=== PATIENT | female | born 1940 | race Caucasian/White ===

== ENCOUNTER 2023-08-14 13:33 | Outpatient (RCR) | payer MEDICARE, SELFPAY ==
[2023-08-14 14:18] LABS: % Basophils 0.6 % (0-2); % Eosinophils 1.3 % (0-6); % Immature Granulocytes 0.4 % (0-0.5); % Lymphocytes 14.2 % (20.5-51.1); % Monocytes 2.8 % (1.7-9.3); % Neutrophils 80.7 % (42.2-75.2); Absolute Basophils 0.1 10^3/uL (0-0.2); Absolute Eosinophils 0.1 10^3/uL (0-0.7); Absolute Lymphocytes 1.1 10^3/uL (1.2-3.4); Absolute Monocytes 0.2 10^3/uL (0.1-0.6); Absolute Neutrophils 6.4 10^3/uL (1.4-6.5); Hematocrit 47.4 % (37.0-47.0); Hemoglobin 13.7 g/dL (12.0-16.0); Mean Corp Hgb Conc. 28.9 g/dL (33.0-37.0); Mean Corpuscular Hgb 19.6 pg (27.0-31.0); Mean Corpuscular Volume 67.7 fL (81.0-99.0); Mean Platelet Volume 9.2 fL (7.4-10.4); Platelet Count 278 10^3/uL (130-400); Red Cell Dist. Width 19.7 % (11.5-14.5)
[2023-08-14 14:27] VITALS: BP 105/87
[2023-08-14 15:17] VITALS: BP 118/77
[2023-08-14 15:25] VITALS: BP 105/76
== END 2023-09-03 23:59 | disposition home or self-care (01) ==
LOC: OID 13:33
PROVIDERS: ATTENDING PHYSICIAN Internal Medicine Hematology & Oncology; PRIMARYCARE PHYSICIAN Internal Medicine
DX: D45 Polycythemia vera (principal)
CPT/HCPCS: 36415; 85025; 99195

== ENCOUNTER 2023-10-08 10:42 | Outpatient (RCR) | payer MEDICARE, SELFPAY ==
[2023-10-08 11:15] LABS: % Basophils 0.5 % (0-2); % Eosinophils 1.1 % (0-6); % Immature Granulocytes 0.2 % (0-0.5); % Lymphocytes 9.5 % (20.5-51.1); % Monocytes 2.3 % (1.7-9.3); % Neutrophils 86.4 % (42.2-75.2); Absolute Eosinophils 0.1 10^3/uL (0-0.7); Absolute Lymphocytes 0.8 10^3/uL (1.2-3.4); Absolute Monocytes 0.2 10^3/uL (0.1-0.6); Absolute Neutrophils 7.3 10^3/uL (1.4-6.5); Hematocrit 44.3 % (37.0-47.0); Hemoglobin 12.8 g/dL (12.0-16.0); Mean Corp Hgb Conc. 28.9 g/dL (33.0-37.0); Mean Corpuscular Hgb 19.8 pg (27.0-31.0); Mean Corpuscular Volume 68.4 fL (81.0-99.0); Mean Platelet Volume 9.4 fL (7.4-10.4); Platelet Count 271 10^3/uL (130-400); Red Blood Cell Count 6.48 10^6/uL (4.20-5.40); Red Cell Dist. Width 18.8 % (11.5-14.5); White Blood Cell Count 8.4 10^3/uL (4.8-10.8)
== END 2023-10-08 15:47 | disposition home or self-care (01) ==
LOC: OID 10:42
PROVIDERS: ATTENDING PHYSICIAN Internal Medicine Hematology & Oncology; PRIMARYCARE PHYSICIAN Internal Medicine
DX: D45 Polycythemia vera (principal)
CPT/HCPCS: 36415; 85025

== ENCOUNTER 2023-11-13 12:52 | Outpatient (RCR) | payer MEDICARE, SELFPAY ==
[2023-11-13 13:00] VITALS: BP 127/76
[2023-11-13 13:27] LABS: % Basophils 0.5 % (0-2); % Immature Granulocytes 0.2 % (0-0.5); % Lymphocytes 8.9 % (20.5-51.1); % Monocytes 2.2 % (1.7-9.3); % Neutrophils 87.2 % (42.2-75.2); Absolute Basophils 0.1 10^3/uL (0-0.2); Absolute Eosinophils 0.1 10^3/uL (0-0.7); Absolute Lymphocytes 0.9 10^3/uL (1.2-3.4); Absolute Monocytes 0.2 10^3/uL (0.1-0.6); Absolute Neutrophils 8.4 10^3/uL (1.4-6.5); Hematocrit 48.4 % (37.0-47.0); Mean Corp Hgb Conc. 28.9 g/dL (33.0-37.0); Mean Corpuscular Hgb 19.7 pg (27.0-31.0); Mean Corpuscular Volume 68.1 fL (81.0-99.0); Mean Platelet Volume 9.7 fL (7.4-10.4); Platelet Count 309 10^3/uL (130-400); Red Blood Cell Count 7.11 10^6/uL (4.20-5.40); Red Cell Dist. Width 18.8 % (11.5-14.5); White Blood Cell Count 9.7 10^3/uL (4.8-10.8)
[2023-11-13 14:30] VITALS: BP 121/74
[2023-11-13 14:33] VITALS: BP 98/73
== END 2023-12-02 23:59 | disposition home or self-care (01) ==
LOC: OID 12:52
PROVIDERS: ATTENDING PHYSICIAN Internal Medicine Hematology & Oncology; PRIMARYCARE PHYSICIAN Internal Medicine
DX: D45 Polycythemia vera (principal)
CPT/HCPCS: 85025; 99195

== ENCOUNTER 2023-12-25 12:54 | Outpatient (RCR) | payer MEDICARE, SELFPAY ==
[2023-12-25 13:16] LABS: % Basophils 0.5 % (0-2); % Eosinophils 0.8 % (0-6); % Immature Granulocytes 0.2 % (0-0.5); % Lymphocytes 9.8 % (20.5-51.1); % Monocytes 2.1 % (1.7-9.3); % Neutrophils 86.6 % (42.2-75.2); Absolute Basophils 0.1 10^3/uL (0-0.2); Absolute Eosinophils 0.1 10^3/uL (0-0.7); Absolute Monocytes 0.2 10^3/uL (0.1-0.6); Absolute Neutrophils 8.6 10^3/uL (1.4-6.5); Hematocrit 45.7 % (37.0-47.0); Hemoglobin 13.1 g/dL (12.0-16.0); Mean Corp Hgb Conc. 28.7 g/dL (33.0-37.0); Mean Corpuscular Hgb 19.3 pg (27.0-31.0); Mean Corpuscular Volume 67.4 fL (81.0-99.0); Mean Platelet Volume 9.3 fL (7.4-10.4); Platelet Count 313 10^3/uL (130-400); Red Blood Cell Count 6.78 10^6/uL (4.20-5.40); Red Cell Dist. Width 19.1 % (11.5-14.5)
[2023-12-25 13:18] VITALS: BP 149/73
[2023-12-25 14:07] VITALS: BP 122/75
== END 2023-12-26 08:53 | disposition home or self-care (01) ==
LOC: OID 12:54
PROVIDERS: ATTENDING PHYSICIAN Internal Medicine Hematology & Oncology; PRIMARYCARE PHYSICIAN Internal Medicine
DX: D45 Polycythemia vera (principal)
CPT/HCPCS: 85025; 99195

== ENCOUNTER 2023-12-28 09:10 | Inpatient (IN) | payer MEDICARE, SELFPAY ==
[2023-12-28 04:28] VITALS: BP 158/90
--- NOTE | 2023-12-28 05:04 | ED.GENMED ---
History of Present Illness
General
Chief Complaint: Abdominal Pain
Source: patient and spouse
Exam Limitations: none
Time Seen by Provider: 12/28/23 04:53
Nursing documentation reviewed up to this point in time: agreed with
Travel History
Have you had any contact with someone who has COVID-19?: No
Do you have any symptoms of coronavirus? Fever > 100 degrees, chills, cough, shortness of breath, sore throat, loss of taste or smell, muscle aches, or headache?: No
History of Present Illness
History of Present Illness:
This is an 83-year-old woman who resides at home with her . She has history of polycythemia vera follows with hematology and is maintained on intermittent phlebotomy generally every 6 weeks. Last phlebotomy procedure December 24. She complains
of generalized lower abdominal pain that began around 2:00 this morning, mild to moderate in nature accompanied with nausea, 1 episode of vomiting. She did pass a small soft stool with perhaps mild improvement in pain but then returned and seemed
to wrap around to her right low back. She states at 1 point right low back pain was worse with attempting to lift her right leg but she denies radiation of the pain down her leg, denies weakness nor numbness.
She denies dysuria nor urgency and or hematuria, denies fever nor chills. No history of similar episodes of abdominal pain.
No prior abdominal surgeries.
She has not taken anything for discomfort and now notes relief of lower abdominal pain but continues with mild ache right low back which has improved but has not resolved.
She denies recent injury nor fall.
Past History
Past History
ED Past Medical History: HTN and Other (Polycythemia vera)
ED Past Surgical History: Gynecological (Tubal ligation, D&C) and Tonsilectomy
Social History
Tobacco: Non-smoker
Alcohol: None
Personal:
Living: with family
Family History
Family History: Cancer
Phy Exam
Physical Exam
Physical Exam:
GENERAL: 83-year-old woman appears her stated age, awake and alert, pleasant, appears in no acute distress. Accompanied by her .
EYE: anicteric
NECK: Supple, nontender, no meningismus, no significant adenopathy.
ENT: poral mucosa is moist. No rhinorrhea.
CARDIAC: Regular rate and rhythm. no murmur.
LUNGS: Clear breath sounds bilaterally, no acute respiratory distress, no wheezes/rales/rhonchi
ABDOMEN: Soft, nondistended, without focal tenderness, no r/g, no cvat. normoactive BS. No palpable masses.
BACK: No midline bony tenderness. There is minimal tenderness right lower lumbar paravertebral region. Straight leg raising is negative bilaterally.
NEUROLOGICAL: Alert and oriented x3, no focal neuro deficits. Gait is steady.
SKIN: Warm and dry, normal color, skin intact. No rash.
MUSCULOSKELETAL: No C/C/E. peripheral pulses are full and equal b/l. No palpable tenderness.
PSYCH: Normal and appropriate interaction.
Course
Orders/Labs/Results
Orders:
Orders
12/28/23 05:14
Complete Blood Count/With Diff Urgent
Comprehensive Metabolic Panel Urgent
Lactic Acid Urgent
Lipase Urgent
Comment: ADD ON
12/28/23 05:57
Add On- LAB Urgent
Tests Added?: lipase
12/28/23 06:03
CT Abd/pelvis W Iv Cont Urgent
Comment:
Reason For Exam: gen lower abd pain, R LBP
12/28/23 06:39
Urinalysis Reflex To Culture Urgent
Date Specimen was Collected: 12/28/23
Time Specimen was Collected: 06:34
Urine Microscopic Reflex Cult Urgent
12/28/23 06:43
Ketorolac [Toradol] 15 mg .ROUTE .STK-MED ONE
Ketorolac [Toradol] 15 mg IV NOW STA
Abnormal Lab Results
12/28/23 12/28/23
05:14 06:39
WBC 11.9 H 10^3/uL
(4.8-10.8)
RBC 5.93 H 10^6/uL
(4.20-5.40)
Hgb 11.7 L g/dL
(12.0-16.0)
MCV 67.3 L fL
(81.0-99.0)
MCH 19.7 L pg
(27.0-31.0)
MCHC 29.3 L g/dL
(33.0-37.0)
RDW 18.8 H %
(11.5-14.5)
Abs Immat Gran (auto) 0.1 H 10^3/uL
(0-0.05)
Absolute Neuts (auto) 10.4 H 10^3/uL
(1.4-6.5)
Absolute Lymphs (auto) 1.0 L 10^3/uL
(1.2-3.4)
Immature Gran % 0.6 H %
(0-0.5)
Neutrophils % 87.6 H %
(42.2-75.2)
Lymphocytes % 8.2 L %
(20.5-51.1)
BUN 26 H mg/dl
(7-17)
Glucose 111 H mg/dl
(70-99)
Ur Occult Blood Reflex 2+ A
(Negative)
Leukocyte Esterase Rfl Trace A
(Negative)
Urine RBC 50-60 A /HPF
(0-2)
Urine Bacteria (Reflex) Few A
(Negative)
12/28/23 05:14
12/28/23 05:14
Vital Signs
Initial and Last Documented VS:
Initial Vital Signs
Temp Pulse Resp BP Pulse Ox
97.8 F 70 24 158/90 98
12/28/23 04:28 12/28/23 04:28 12/28/23 04:28 12/28/23 04:28 12/28/23 04:28
Last Documented Vital Signs
Temp Pulse Resp BP Pulse Ox
97.8 F 74 16 153/83 98
12/28/23 04:28 12/28/23 06:50 12/28/23 06:50 12/28/23 06:50 12/28/23 06:50
MDM/Problems Addressed
Differential Diagnosis Includes:
Concern for renal colic, UTI, colitis, bowel obstruction, ischemic bowel, low back strain. As abdominal pain as improved/resolved, appendicitis is much less likely.
Will check labs, urinalysis.
Will consider imaging depending on lab results and clinical course.
Chronic conditions affecting care: HTN
*Radiology
Radiology exam reviewed: radiology read reviewed
*Pulse Oximetry
Patient hypoxic: no
*Critical Care Note
Total Time (30-74mins, 75-104mins- exclusive of procedures): Not Applicable
Update Note
Update Note:
Patient notes return of moderate right back pain and nausea, has been given a small IV dose of Toradol.
Creatinine normal at 0.7, moderately elevated BUN at 26.
Elevated white blood cell count of 11.9. Mild anemia at 11.7 but patient underwent phlebotomy just 3 days ago.
CAT scan shows a large, 8 mm proximal right ureteral stone with severe hydronephrosis.
Due to advanced age, large proximal stone with severe hydronephrosis, I have significant concern for difficulty managing pain, concern for renal function decompensation.
Case discussed with urology, agrees the patient requires admission for observation today and if stone fails to migrate will plan for OR/stone retrieval tomorrow.
Due to age, polycythemia vera, hypertension, will admit to hospitalist service with consult to urology.
ED Attending Note
-
Portions of this chart may have been created with voice recognition software.� Occasional wrong word or��sound alike� substitutions may have occurred due to the inherent limitations of voice recognition software.
Discharge Plan
Departure
Patient Disposition: Admit
Date of Disposition: 12/28/23
Time of Disposition: 07:09
Admit to: Med/Surg
Presentation/result/management discussed w/ accepting MD/DO: Hospitalist
Condition: Fair
Discharge Problem:
large proximal right ureteral stone , severe R hydronephrosis r/t prox stone, Polycythemia vera
Prescriptions:
No Action
aspirin 81 MG tablet,chewable
162 mg PO DAILY
metoprolol succinate 12.5 MG tablet extended release 24 hr
12.5 mg PO HS
hydroxyurea 500 mg Capsule
1,500 mg PO .TUEFRI
Referrals:
Tomasa Singh MD [Family Provider] -
Interventions
Interventions:
*Risk Screen - Suicide Last Done: 12/28/23 04:28
*General Assessment Last Done: 12/28/23 04:41
*Neglect/Abuse Screening Last Done: 12/28/23 04:28
ED- Fall Risk Assessment Last Done: 12/28/23 04:41
*ED COVID-19 Vaccine History Last Done: 12/28/23 04:41
HQ-Oaggxm-Ufrutbrlnd Assessment Last Done: 12/28/23 04:41
Discharge Date and Time
Print Language: LUX[place]
[2023-12-28 05:26] LABS: % Basophils 0.6 % (0-2); % Eosinophils 0.8 % (0-6); % Immature Granulocytes 0.6 % (0-0.5); % Lymphocytes 8.2 % (20.5-51.1); % Monocytes 2.2 % (1.7-9.3); % Neutrophils 87.6 % (42.2-75.2); Absolute Basophils 0.1 10^3/uL (0-0.2); Absolute Eosinophils 0.1 10^3/uL (0-0.7); Absolute Immature Granulocytes 0.1 10^3/uL (0-0.05); Absolute Monocytes 0.3 10^3/uL (0.1-0.6); Absolute Neutrophils 10.4 10^3/uL (1.4-6.5); Hematocrit 39.9 % (37.0-47.0); Hemoglobin 11.7 g/dL (12.0-16.0); Mean Corp Hgb Conc. 29.3 g/dL (33.0-37.0); Mean Corpuscular Hgb 19.7 pg (27.0-31.0); Mean Corpuscular Volume 67.3 fL (81.0-99.0); Mean Platelet Volume 9.3 fL (7.4-10.4); Nucleated Red Blood Cells % 0 %; Platelet Count 306 10^3/uL (130-400); Red Blood Cell Count 5.93 10^6/uL (4.20-5.40); Red Cell Dist. Width 18.8 % (11.5-14.5); White Blood Cell Count 11.9 10^3/uL (4.8-10.8)
[2023-12-28 05:53] LABS: Lactic Acid 1.2 mmol/L (0.7-2.0)
[2023-12-28 05:57] LABS: ALT (SGPT) 12 U/L (0-35); AST (SGOT) 23 U/L (14-36); Albumin 4.1 g/dl (3.5-5.0); Alkaline Phosphatase 72 U/L (38-126); Blood Urea Nitrogen 26 mg/dl (7-17); Calcium 9.2 mg/dl (8.4-10.2); Carbon Dioxide 25 mmol/L (22-30); Chloride 104 mmol/L (98-107); Glucose 111 mg/dl (70-99); Potassium 4.1 mmol/L (3.5-5.1); Sodium 136 mmol/L (135-145); Total Bilirubin 0.4 mg/dl (0.2-1.3); Total Protein 6.4 g/dl (6.3-8.2); eGFR > 60.00
[2023-12-28 06:26] LABS: Lipase 71 U/L (23-300)
[2023-12-28] MEDS: TORADOL 15 MG IV (06:44)
[2023-12-28 06:50] VITALS: BP 153/83
[2023-12-28 06:50] LABS: Urine Albumin Negative (Neg - Trace); Urine Bilirubin Negative (Negative); Urine Character Clear (Clear); Urine Color Yellow; Urine Glucose Negative (Negative); Urine Ketone Negative (Negative); Urine Leukocyte Trace (Negative); Urine Nitrite Negative (Negative); Urine Occult Blood 2+ (Negative); Urine Specific Gravity 1.015 (<1.030); Urine Urobilinogen Negative (Neg - 1+)
[2023-12-28 07:00] LABS: Urine Bacteria Few (Negative); Urine Red Blood Cell 50-60 /HPF (0-2)
--- NOTE | 2023-12-28 08:31 | HPS.HSE ---
Family Physician
-
Family Physician: Tomasa Singh
Chief Complaint
-
Right pelvic pain
History of Present Illness
83-year-old female with a past medical history of polycythemia vera, palpitations, and hypertension presents with right-sided pelvic pain since last night. Patient states that at 2 AM, she started having right lower quadrant pelvic pain, that
radiated to her back. Pain was 6 out of 10 in intensity, resolved with IV Toradol. She denies fever, denies chills. No dysuria. No chest pain, shortness of breath or palpitations. No nausea, no vomiting.
Medical History
Past Medical History
Past Medical History: Reports Other
Additional Past Medical History:
Polycythemia vera
Palpitations
Hypertension
Past Surgical History: Reports Other
Additional Past Surgical History:
Tubal ligation
D&C
Tonsillectomy
Social History
Tobacco: Non-smoker
Alcohol: None
Drug: None
Personal:
Living: With Family
Family History
Family History: Not pertinent
Allergies / Home Medications
Allergies reflects when Allergies were last updated in [facility].
Home Medications with original date entered in [facility]
Allergy/Medication List:
Allergies
Allergy/AdvReac Type Severity Reaction Status Date / Time
Penicillins Allergy Rash Verified 12/28/23 11:56
Home Medications Table - record
�Medication �Instructions �Recorded �Confirmed
aspirin 81 mg chewable tablet 162 mg PO DAILY 05/27/11 12/28/23
metoprolol succinate 25 mg 12.5 mg PO HS 10/22/16 12/28/23
tablet,extended release 24 hr
hydroxyurea 500 mg capsule 500 mg PO .TUEFRI 01/14/23 12/28/23
Review of Systems
-
A 12 point ROS was completed and negative except as noted: Yes
Physical Exam
Vital Signs
Vital Signs
Temp Pulse Resp BP Pulse Ox
97.8 F 74 16 153/83 98
12/28/23 04:28 12/28/23 06:50 12/28/23 06:50 12/28/23 06:50 12/28/23 06:50
Physical Exam
General: No Apparent Distress
HEENT: NormoCephalic, Anicteric and Moist mucous membranes
Respiratory: Clear
Cardiac: S1/S2 and Regular Rhythm
GI: Soft, Non Distended and Tender (Tender at the right pelvis)
Musculoskeletal: No Clubbing, No Cyanosis and No Edema
Neuro: Awake, Alert and Oriented
Psych: Calm
Laboratory Results
-
12/28/23 05:14
12/28/23 05:14
Laboratory Results
Lactic Acid 1.2 mmol/L (0.7-2.0) 12/28/23 05:14
Total Bilirubin 0.4 mg/dl (0.2-1.3) 12/28/23 05:14
AST 23 U/L (14-36) 12/28/23 05:14
ALT 12 U/L (0-35) 12/28/23 05:14
Alkaline Phosphatase 72 U/L (38-126) 12/28/23 05:14
Lipase 71 U/L (23-300) 12/28/23 05:14
Impression/Plan
-
CT abd/pelvis:
0.8 cm proximal right ureteral calculus with associated upstream severe right hydroureteronephrosis.
0.8 cm indeterminate hypoattenuating right hepatic lobe lesion. Consider outpatient workup with dedicated MRI abdomen without and with gadolinium contrast.
Probable simple bilateral ovarian cysts measuring up to 5.0 cm on the left. Consider outpatient workup with dedicated pelvic ultrasound.
Splenomegaly.
#0.8 cm proximal right ureteral stone with associated severe right ureteral hydronephrosis
Appreciate urology input, IV fluids, Flomax, strain urine, pain control, attempt passage of stone
IV Rocephin, follow-up on urine cultures, trend fever and white count
May need cystoscopy with stent placement tomorrow if stone does not pass
#Benign essential hypertension
#Palpitations
Continue metoprolol succinate 12.5 mg at bedtime
#Polycythemia vera
Continue hydroxyurea
DVT prophylaxis�subcu Lovenox
Full code
--- NOTE | 2023-12-28 09:33 | W.PN.URO.CBU ---
Today's Communication / Plan
-
Trial of stone passage
Tamsulosin 0.4mg daily
Strain urine
Ambulate
Assessment / Plan
-
Partially obstructing right proximal ureteral stone
Right renal colic
---
Plan:
Trial of stone passage
Have offered ureteroscopic stone manipulation with possible laser lithotripsy and JJ stent placement tomorrow should symptoms warrant
Discussed pros/cons of surgery v. trial of passage. Risk of right ureteral or bladder injury noted.
Diagnosis
-
Date of Service: December 28, 2023
-
Patient Diagnosis:
Right renal colic
8mm partially obstructing right ureteral calculus
Right hydronephrosis
Subjective
-
Comfortable at this time having recently received analgesic
Objective
-
Vital Signs
Temp Pulse Resp BP Pulse Ox
97.8 F 74 16 153/83 98
12/28/23 04:28 12/28/23 06:50 12/28/23 06:50 12/28/23 06:50 12/28/23 06:50
Laboratory Results
12/28/23 05:14
12/28/23 05:14
CT scan images personally reviewed
Review of Systems
-
Constitutional: No Symptoms
Respiratory: No Symptoms
Cardiac: No Symptoms
Abdomen/GI: No Symptoms
: No Symptoms
Neurological: No Symptoms
Physical Exam
-
General - well developed, well nourished, no acute distress
Abdomen - soft, non-tender
Skin - warm & dry with no rash
Neuro - AOx3, no motor deficits
[2023-12-28 09:47] VITALS: BP 138/80
[2023-12-28 10:15] VITALS: BP 133/89
[2023-12-28 10:25] VITALS: BMI 23.2
[2023-12-28] MEDS: NSS 1000 IV (11:47)
[2023-12-28] MEDS: LOW STRENGTH ASPIRIN 162 MG PO (12:22)
[2023-12-28] MEDS: FLOMAX 0.400000000000000022 MG PO (12:22)
[2023-12-28] MEDS: ROCEPHIN 1000 MG IV (13:04)
[2023-12-28] MEDS: STERILE WATER FOR INJECTION 10 ML IV (13:05)
--- NOTE | 2023-12-28 15:49 | PTOTSP ---
The patient is independent with mobility, denies changes in her functional status since admission. Encouraged the patient to ambulate in the hallway while here to maintain strength. No PT needs identified at this time, will sign off.
[2023-12-28 16:15] VITALS: BP 117/81
[2023-12-28] MEDS: LOVENOX 40 MG SC (18:06)
[2023-12-28] MEDS: TOPROL XL 12.5 MG PO (21:53)
[2023-12-28 23:34] VITALS: BP 125/80
[2023-12-29] MEDS: NSS 1000 IV (00:48)
[2023-12-29 07:48] VITALS: BP 143/88
[2023-12-29] MEDS: LOW STRENGTH ASPIRIN PO (08:27)
[2023-12-29] MEDS: FLOMAX PO (08:27)
--- NOTE | 2023-12-29 08:27 | PTCARENOTE ---
Patient and visitor previously expressed intent to leave AMA this am, then informed nurse they would wait until 0830 in hopes of speaking to physician before they leave. Dr. Castañeda and Dr. Villalta updated and d/c facilitated by Dr. Villalta. Patient
declined wheelchair to be transported to hospital exit; patient left unit ambulating with visitor.
--- NOTE | 2023-12-29 09:05 | CM ---
Notified by community organization worker [place] that patient who was threatening to leave AMA was discharged and left at 8:30am with .
Patient not seen by Customer Assistance Representative.
Plan home today.
--- NOTE | 2023-12-29 09:23 | W.DCSUMMARY ---
Discharge Summary
Discharge Data
Date of Admission: 12/28/23
Date of Discharge: 12/29/23
-
Pending Results: No
Hospital Course
83 years old female who presented with right flank pain. Scan of the abdomen pelvis showed 7-8 millimeter partially obstructing right proximal ureteral calculus with associated right hydroureteronephrosis. Patient received intravenous antibiotic,
intravenous fluid and pain medicine. She was admitted to the hospital. She was evaluated by urology. Patient was started on Flomax. Urology followed the patient. Her pain subsided. Renal function was normal with creatinine 0.7. She was able
to tolerate diet. Urology recommended outpatient follow-up for further management. Patient remained hemodynamically stable and was discharged in a stable condition.
Physical Exam
General: No Apparent Distress
HEENT: NormoCephalic, Anicteric and Moist mucous membranes
Respiratory: Clear
Cardiac: S1/S2 and Regular Rhythm
GI: Soft, Non Distended and Non Tender ( not tender at the right flank area)
: Clear urine.
Musculoskeletal: No Clubbing, No Cyanosis and No Edema
Neuro: Awake, Alert and Oriented
Psych: Calm
Total discharge time spent to see the patient, examine the patient on the floor, review data and lab results, discuss discharge plan with patient, nursing staff around 65 minutes
Discharge Plan
-
Patient Disposition: Home (Routine Discharge)
Discharge Diagnosis/Procedures: 7-8 mm right proximal ureteral calculus with associated right hydroureteronephrosis. You did not have pain over night. You were discharged home to follow with urology
Diet: As tolerated
Referrals:
Tomasa Singh MD [Family Provider] -
Raji Castañeda MD [Active] - in less than 1 week (Call to make an appointment )
Prescriptions:
New
tamsulosin 0.4 mg Capsule
0.4 mg PO DAILY Qty: 30 0RF
cefuroxime axetil 500 mg tablet
500 mg PO BID Qty: 4 0RF
Continued
aspirin 81 MG tablet,chewable
162 mg PO DAILY
metoprolol succinate 12.5 MG tablet extended release 24 hr
12.5 mg PO HS
hydroxyurea 500 mg Capsule
500 mg PO .TUEFRI
Discharge Orders:
Discharge Patient (As Directed); Ordered 12/29/23
Ordered By: Elizabeth Villalta
Discharge Date and Time
Discharge Date/Time: 12/29/23 08:30
Print Language: KYRGYZ
--- NOTE | 2023-12-29 09:29 | W.PN.UPDATE ---
Update Note
Progress Note Update
I was called by the nurse as patient wanted to leave.
In patient room, she was dressed up and ready to leave. was at bedside and requested to be discharged as patient was feeling fine and they wanted to follow with urology as outpatient. Discharge instructions were given to them. They
verbalized understanding to need to come back if pain recurred. They will follow-up with urology as outpatient. Urology was updated
== END 2023-12-29 08:30 | disposition home or self-care (01) | DRG 694 ==
LOC: 4 WEST ACU 09:10
PROVIDERS: ADMITTING PHYSICIAN Family Medicine; ATTENDING PHYSICIAN Internal Medicine; CONSULT PHYSICIAN Specialist; EMERGENCY PHYSICIAN Emergency Medicine; FAMILY PHYSICIAN Internal Medicine
DX: N13.2 Hydronephrosis with renal and ureteral calculous obstruction (principal); D45 Polycythemia vera; I10 Essential (primary) hypertension; D25.9 Leiomyoma of uterus, unspecified; N83.201 Unspecified ovarian cyst, right side; N83.202 Unspecified ovarian cyst, left side; R00.2 Palpitations; K76.9 Liver disease, unspecified; R16.1 Splenomegaly, not elsewhere classified; Z88.0 Allergy status to penicillin
CPT/HCPCS: 74177; 80053; 81003; 81015; 83605; 83690; 85025; 96374; 97161; 99285; Q9967

== ENCOUNTER 2024-02-12 12:52 | Outpatient (RCR) | payer MEDICARE, SELFPAY ==
[2024-02-12 13:32] VITALS: BP 128/80
[2024-02-12 13:34] LABS: % Basophils 0.6 % (0-2); % Eosinophils 0.9 % (0-6); % Immature Granulocytes 0.1 % (0-0.5); % Lymphocytes 9.3 % (20.5-51.1); % Monocytes 2.5 % (1.7-9.3); % Neutrophils 86.6 % (42.2-75.2); Absolute Basophils 0.1 10^3/uL (0-0.2); Absolute Eosinophils 0.1 10^3/uL (0-0.7); Absolute Lymphocytes 0.9 10^3/uL (1.2-3.4); Absolute Monocytes 0.2 10^3/uL (0.1-0.6); Absolute Neutrophils 8.4 10^3/uL (1.4-6.5); Hematocrit 44.2 % (37.0-47.0); Hemoglobin 12.6 g/dL (12.0-16.0); Mean Corp Hgb Conc. 28.5 g/dL (33.0-37.0); Mean Corpuscular Hgb 19.3 pg (27.0-31.0); Mean Corpuscular Volume 67.8 fL (81.0-99.0); Platelet Count 290 10^3/uL (130-400); Red Blood Cell Count 6.52 10^6/uL (4.20-5.40); White Blood Cell Count 9.7 10^3/uL (4.8-10.8)
== END 2024-02-13 10:03 | disposition home or self-care (01) ==
LOC: OID 12:52
PROVIDERS: ATTENDING PHYSICIAN Internal Medicine Hematology & Oncology; PRIMARYCARE PHYSICIAN Internal Medicine
DX: D45 Polycythemia vera (principal)
CPT/HCPCS: 36415; 85025

== ENCOUNTER 2024-04-01 12:39 | Outpatient (RCR) | payer MEDICARE, SELFPAY ==
[2024-04-01 13:00] VITALS: BP 127/85
[2024-04-01 13:31] LABS: % Basophils 0.6 % (0-2); % Immature Granulocytes 0.3 % (0-0.5); % Lymphocytes 9.9 % (20.5-51.1); % Neutrophils 86.2 % (42.2-75.2); Absolute Basophils 0.1 10^3/uL (0-0.2); Absolute Eosinophils 0.1 10^3/uL (0-0.7); Absolute Monocytes 0.2 10^3/uL (0.1-0.6); Absolute Neutrophils 8.5 10^3/uL (1.4-6.5); Mean Corp Hgb Conc. 28.9 g/dL (33.0-37.0); Mean Corpuscular Hgb 19.2 pg (27.0-31.0); Mean Corpuscular Volume 66.6 fL (81.0-99.0); Mean Platelet Volume 9.2 fL (7.4-10.4); Nucleated Red Blood Cells % 0 %; Platelet Count 313 10^3/uL (130-400); Red Blood Cell Count 6.76 10^6/uL (4.20-5.40); Red Cell Dist. Width 18.9 % (11.5-14.5); White Blood Cell Count 9.8 10^3/uL (4.8-10.8)
[2024-04-01 13:41] LABS: HDL Cholesterol 54 mg/dl; LDL Cholesterol, Calculated 65 mg/dl; Total Cholesterol 134 mg/dl (50-199); Triglyceride 79 mg/dl (10-149); Very Low Density Lipoprotein 15 mg/dl (0-30)
== END 2024-04-02 07:55 | disposition home or self-care (01) ==
LOC: OID 12:39
PROVIDERS: Internal Medicine Cardiovascular Disease; ATTENDING PHYSICIAN Internal Medicine Hematology & Oncology; PRIMARYCARE PHYSICIAN Internal Medicine
DX: D45 Polycythemia vera (principal)
CPT/HCPCS: 36415; 80061; 85025

== ENCOUNTER 2024-05-13 12:43 | Outpatient (RCR) | payer MEDICARE, SELFPAY ==
[2024-05-13 13:00] VITALS: BP 122/77
[2024-05-13 13:20] LABS: % Basophils 0.7 % (0-2); % Eosinophils 1.1 % (0-6); % Immature Granulocytes 0.3 % (0-0.5); % Lymphocytes 10.1 % (20.5-51.1); % Monocytes 2.7 % (1.7-9.3); % Neutrophils 85.1 % (42.2-75.2); Absolute Basophils 0.1 10^3/uL (0-0.2); Absolute Eosinophils 0.1 10^3/uL (0-0.7); Absolute Lymphocytes 1.1 10^3/uL (1.2-3.4); Absolute Monocytes 0.3 10^3/uL (0.1-0.6); Absolute Neutrophils 8.9 10^3/uL (1.4-6.5); Hemoglobin 12.8 g/dL (12.0-16.0); Mean Corp Hgb Conc. 29.1 g/dL (33.0-37.0); Mean Corpuscular Hgb 19.7 pg (27.0-31.0); Mean Corpuscular Volume 67.7 fL (81.0-99.0); Mean Platelet Volume 9.4 fL (7.4-10.4); Platelet Count 336 10^3/uL (130-400); Red Cell Dist. Width 19.5 % (11.5-14.5); White Blood Cell Count 10.5 10^3/uL (4.8-10.8)
== END 2024-05-14 09:07 | disposition home or self-care (01) ==
LOC: OID 12:43
PROVIDERS: ATTENDING PHYSICIAN Internal Medicine Hematology & Oncology
DX: D45 Polycythemia vera (principal)
CPT/HCPCS: 36415; 85025

== ENCOUNTER 2024-06-24 12:44 | Outpatient (RCR) | payer MEDICARE, SELFPAY ==
[2024-06-24 13:24] LABS: % Basophils 0.6 % (0-2); % Eosinophils 0.6 % (0-6); % Immature Granulocytes 0.3 % (0-0.5); % Neutrophils 88.5 % (42.2-75.2); Absolute Basophils 0.1 10^3/uL (0-0.2); Absolute Eosinophils 0.1 10^3/uL (0-0.7); Absolute Lymphocytes 0.8 10^3/uL (1.2-3.4); Absolute Monocytes 0.2 10^3/uL (0.1-0.6); Absolute Neutrophils 8.3 10^3/uL (1.4-6.5); Hematocrit 47.8 % (37.0-47.0); Hemoglobin 13.9 g/dL (12.0-16.0); Mean Corp Hgb Conc. 29.1 g/dL (33.0-37.0); Mean Corpuscular Volume 68.8 fL (81.0-99.0); Mean Platelet Volume 9.2 fL (7.4-10.4); Platelet Count 299 10^3/uL (130-400); Red Blood Cell Count 6.95 10^6/uL (4.20-5.40); Red Cell Dist. Width 19.5 % (11.5-14.5); White Blood Cell Count 9.4 10^3/uL (4.8-10.8)
[2024-06-24 13:32] VITALS: BP 147/92
[2024-06-24 14:20] VITALS: BP 124/83
[2024-06-24 14:30] VITALS: BP 109/80
== END 2024-06-25 08:33 | disposition home or self-care (01) ==
LOC: OID 12:44
PROVIDERS: ATTENDING PHYSICIAN Internal Medicine Hematology & Oncology
DX: D45 Polycythemia vera (principal)
CPT/HCPCS: 85025; 99195

== ENCOUNTER → 2024-07-16 11:37 | Outpatient (REF) | payer MEDICARE, SELFPAY | LOC: RAD 11:37 | PROVIDERS: ATTENDING PHYSICIAN Specialist | DX: N20.0 Calculus of kidney (principal) | CPT/HCPCS: 74018 ==

== ENCOUNTER → 2024-07-23 12:48 | Outpatient (REF) | payer MEDICARE, SELFPAY | LOC: HWRAD 12:48 | PROVIDERS: ATTENDING PHYSICIAN Specialist | DX: N20.0 Calculus of kidney (principal); N20.1 Calculus of ureter | CPT/HCPCS: 74176 ==

== ENCOUNTER 2024-08-05 12:55 | Outpatient (RCR) | payer MEDICARE, SELFPAY ==
[2024-08-05 13:37] LABS: % Basophils 0.7 % (0-2); % Immature Granulocytes 0.2 % (0-0.5); % Lymphocytes 8.3 % (20.5-51.1); % Monocytes 2.3 % (1.7-9.3); % Neutrophils 87.5 % (42.2-75.2); Absolute Basophils 0.1 10^3/uL (0-0.2); Absolute Eosinophils 0.1 10^3/uL (0-0.7); Absolute Lymphocytes 0.8 10^3/uL (1.2-3.4); Absolute Monocytes 0.2 10^3/uL (0.1-0.6); Absolute Neutrophils 8.9 10^3/uL (1.4-6.5); Hematocrit 47.3 % (37.0-47.0); Hemoglobin 13.7 g/dL (12.0-16.0); Mean Corpuscular Hgb 19.7 pg (27.0-31.0); Mean Corpuscular Volume 68.2 fL (81.0-99.0); Mean Platelet Volume 8.9 fL (7.4-10.4); Platelet Count 334 10^3/uL (130-400); Red Blood Cell Count 6.94 10^6/uL (4.20-5.40); Red Cell Dist. Width 18.4 % (11.5-14.5); White Blood Cell Count 10.1 10^3/uL (4.8-10.8)
[2024-08-05 13:38] VITALS: BP 119/73
[2024-08-05 14:12] LABS: Calcium 9.7 mg/dl (8.4-10.2); Uric Acid 5.8 mg/dl (2.5-6.2)
[2024-08-05 14:40] VITALS: BP 120/73
[2024-08-05 14:44] VITALS: BP 87/64
[2024-08-05 14:50] VITALS: BP 124/84
[2024-08-05 14:53] VITALS: BP 102/71
[2024-08-06 15:15] LABS: Intact PTH 112.5 pg/ml (13.6-85.8)
== END 2024-08-06 09:46 | disposition home or self-care (01) ==
LOC: OID 12:55
PROVIDERS: Specialist; ATTENDING PHYSICIAN Internal Medicine Hematology & Oncology
DX: D45 Polycythemia vera (principal)
CPT/HCPCS: 83970; 84550; 85025; 99195

== ENCOUNTER → 2024-08-17 13:00 | Outpatient (REF) | payer MEDICARE, SELFPAY | LOC: RCS 13:00 | PROVIDERS: ATTENDING PHYSICIAN Internal Medicine Cardiovascular Disease | DX: I34.0 Nonrheumatic mitral (valve) insufficiency (principal) | CPT/HCPCS: 93306 ==

== ENCOUNTER 2024-09-16 12:52 | Outpatient (RCR) | payer MEDICARE, SELFPAY ==
[2024-09-16 13:37] LABS: % Basophils 0.4 % (0-2); % Eosinophils 0.9 % (0-6); % Immature Granulocytes 0.2 % (0-0.5); % Lymphocytes 8.9 % (20.5-51.1); % Monocytes 2.2 % (1.7-9.3); % Neutrophils 87.4 % (42.2-75.2); Absolute Eosinophils 0.1 10^3/uL (0-0.7); Absolute Lymphocytes 0.9 10^3/uL (1.2-3.4); Absolute Monocytes 0.2 10^3/uL (0.1-0.6); Absolute Neutrophils 8.3 10^3/uL (1.4-6.5); Hemoglobin 12.5 g/dL (12.0-16.0); Mean Corp Hgb Conc. 28.4 g/dL (33.0-37.0); Mean Corpuscular Hgb 19.2 pg (27.0-31.0); Mean Corpuscular Volume 67.7 fL (81.0-99.0); Mean Platelet Volume 9.3 fL (7.4-10.4); Platelet Count 334 10^3/uL (130-400); Red Cell Dist. Width 18.1 % (11.5-14.5); White Blood Cell Count 9.6 10^3/uL (4.8-10.8)
[2024-09-16 13:58] VITALS: BP 136/89
--- NOTE | 2024-09-16 14:00 | PTCARENOTE ---
Pt phlebotomy held Hct 44 below parameter of >45. Pt rescheduled for one month.
[2024-09-16 15:32] LABS: Iron 61 ug/dl (37-170)
[2024-09-16 15:42] LABS: Percent Saturation 14 % (20-50); Total Iron Binding Capacity 427 ug/dl (265-497)
[2024-09-16 16:06] LABS: Ferritin 5.8 ng/ml (11.1-264.0)
== END 2024-09-17 07:55 | disposition home or self-care (01) ==
LOC: OID 12:52
PROVIDERS: ATTENDING PHYSICIAN Internal Medicine Hematology & Oncology
DX: D45 Polycythemia vera (principal)
CPT/HCPCS: 36415; 82728; 83540; 83550; 85025

== ENCOUNTER 2024-10-21 12:51 | Outpatient (RCR) | payer MEDICARE, SELFPAY ==
[2024-10-21 13:22] LABS: % Basophils 0.7 % (0-2); % Eosinophils 1.2 % (0-6); % Immature Granulocytes 0.3 % (0-0.5); % Lymphocytes 9.2 % (20.5-51.1); % Monocytes 2.6 % (1.7-9.3); Absolute Basophils 0.1 10^3/uL (0-0.2); Absolute Eosinophils 0.1 10^3/uL (0-0.7); Absolute Lymphocytes 0.9 10^3/uL (1.2-3.4); Absolute Monocytes 0.3 10^3/uL (0.1-0.6); Absolute Neutrophils 8.5 10^3/uL (1.4-6.5); Hematocrit 46.5 % (37.0-47.0); Hemoglobin 13.3 g/dL (12.0-16.0); Mean Corp Hgb Conc. 28.6 g/dL (33.0-37.0); Mean Corpuscular Hgb 19.4 pg (27.0-31.0); Mean Corpuscular Volume 67.7 fL (81.0-99.0); Platelet Count 335 10^3/uL (130-400); Red Blood Cell Count 6.87 10^6/uL (4.20-5.40); Red Cell Dist. Width 18.7 % (11.5-14.5); White Blood Cell Count 9.8 10^3/uL (4.8-10.8)
[2024-10-21 13:23] VITALS: BP 134/88
[2024-10-21 14:51] LABS: Ferritin 5.8 ng/ml (11.1-264.0)
== END 2024-11-01 23:59 | disposition home or self-care (01) ==
LOC: OID 12:51
PROVIDERS: ATTENDING PHYSICIAN Internal Medicine Hematology & Oncology
DX: D45 Polycythemia vera (principal)
CPT/HCPCS: 82728; 85025; 99195

== ENCOUNTER 2024-11-18 12:49 | Outpatient (RCR) | payer MEDICARE, SELFPAY ==
[2024-11-18 13:23] LABS: % Basophils 0.6 % (0-2); % Immature Granulocytes 0.2 % (0-0.5); % Lymphocytes 7.9 % (20.5-51.1); % Monocytes 2.6 % (1.7-9.3); % Neutrophils 87.7 % (42.2-75.2); Absolute Basophils 0.1 10^3/uL (0-0.2); Absolute Eosinophils 0.1 10^3/uL (0-0.7); Absolute Lymphocytes 0.8 10^3/uL (1.2-3.4); Absolute Monocytes 0.3 10^3/uL (0.1-0.6); Absolute Neutrophils 8.6 10^3/uL (1.4-6.5); Hematocrit 45.3 % (37.0-47.0); Hemoglobin 12.7 g/dL (12.0-16.0); Mean Corpuscular Hgb 19.2 pg (27.0-31.0); Mean Corpuscular Volume 68.5 fL (81.0-99.0); Mean Platelet Volume 9.9 fL (7.4-10.4); Platelet Count 346 10^3/uL (130-400); Red Blood Cell Count 6.61 10^6/uL (4.20-5.40); Red Cell Dist. Width 18.2 % (11.5-14.5); White Blood Cell Count 9.8 10^3/uL (4.8-10.8)
[2024-11-18 13:41] VITALS: BP 112/74
[2024-11-18 14:42] VITALS: BP 108/68
[2024-11-18 14:45] VITALS: BP 111/77
== END 2024-11-19 11:40 | disposition home or self-care (01) ==
LOC: OID 12:49
PROVIDERS: ATTENDING PHYSICIAN Internal Medicine Hematology & Oncology
DX: D45 Polycythemia vera (principal)
CPT/HCPCS: 85025; 99195

== ENCOUNTER 2024-12-23 12:54 | Outpatient (RCR) | payer MEDICARE, SELFPAY ==
[2024-12-23 13:29] LABS: % Basophils 0.7 % (0-2); % Immature Granulocytes 0.2 % (0-0.5); % Lymphocytes 9.4 % (20.5-51.1); % Monocytes 2.3 % (1.7-9.3); % Neutrophils 86.4 % (42.2-75.2); Absolute Basophils 0.1 10^3/uL (0-0.2); Absolute Eosinophils 0.1 10^3/uL (0-0.7); Absolute Lymphocytes 0.9 10^3/uL (1.2-3.4); Absolute Monocytes 0.2 10^3/uL (0.1-0.6); Absolute Neutrophils 8.7 10^3/uL (1.4-6.5); Hematocrit 42.2 % (37.0-47.0); Hemoglobin 11.9 g/dL (12.0-16.0); Mean Corp Hgb Conc. 28.2 g/dL (33.0-37.0); Mean Corpuscular Hgb 18.9 pg (27.0-31.0); Mean Corpuscular Volume 66.9 fL (81.0-99.0); Mean Platelet Volume 9.1 fL (7.4-10.4); Platelet Count 335 10^3/uL (130-400); Red Blood Cell Count 6.31 10^6/uL (4.20-5.40); Red Cell Dist. Width 17.7 % (11.5-14.5)
[2024-12-23 13:33] VITALS: BP 140/84
== END 2025-01-01 23:59 | disposition home or self-care (01) ==
LOC: OID 12:54
PROVIDERS: ATTENDING PHYSICIAN Internal Medicine Hematology & Oncology
DX: D45 Polycythemia vera (principal)
CPT/HCPCS: 36415; 85025

== ENCOUNTER 2025-01-27 12:51 | Outpatient (RCR) | payer MEDICARE, SELFPAY ==
[2025-01-27 13:25] LABS: % Basophils 0.5 % (0-2); % Eosinophils 0.8 % (0-6); % Immature Granulocytes 0.2 % (0-0.5); % Lymphocytes 7.9 % (20.5-51.1); % Monocytes 2.1 % (1.7-9.3); % Neutrophils 88.5 % (42.2-75.2); Absolute Basophils 0.1 10^3/uL (0-0.2); Absolute Eosinophils 0.1 10^3/uL (0-0.7); Absolute Lymphocytes 0.9 10^3/uL (1.2-3.4); Absolute Monocytes 0.2 10^3/uL (0.1-0.6); Absolute Neutrophils 9.7 10^3/uL (1.4-6.5); Hematocrit 42.7 % (37.0-47.0); Hemoglobin 12.2 g/dL (12.0-16.0); Mean Corp Hgb Conc. 28.6 g/dL (33.0-37.0); Mean Corpuscular Hgb 18.9 pg (27.0-31.0); Mean Platelet Volume 9.2 fL (7.4-10.4); Platelet Count 383 10^3/uL (130-400); Red Blood Cell Count 6.47 10^6/uL (4.20-5.40); Red Cell Dist. Width 18.1 % (11.5-14.5)
[2025-01-27 13:26] VITALS: BP 131/82
== END 2025-01-28 10:06 | disposition home or self-care (01) ==
LOC: OID 12:51
PROVIDERS: ATTENDING PHYSICIAN Internal Medicine Hematology & Oncology
DX: D45 Polycythemia vera (principal)
CPT/HCPCS: 36415; 85025

== ENCOUNTER 2025-03-01 13:34 | Outpatient (RCR) | payer MEDICARE, SELFPAY ==
[2025-03-01 14:15] LABS: Hematocrit 44.7 % (37.0-47.0); Hemoglobin 12.6 g/dL (12.0-16.0); Mean Corp Hgb Conc. 28.2 g/dL (33.0-37.0); Mean Corpuscular Volume 66.6 fL (81.0-99.0); Platelet Count 373 10^3/uL (130-400); Red Cell Dist. Width 19.4 % (11.5-14.5)
== END 2025-03-03 23:59 | disposition home or self-care (01) ==
LOC: OID 13:34
PROVIDERS: ATTENDING PHYSICIAN Internal Medicine Hematology & Oncology
DX: D45 Polycythemia vera (principal)
CPT/HCPCS: 85025

== ENCOUNTER 2025-04-14 12:47 | Outpatient (RCR) | payer MEDICARE, SELFPAY ==
[2025-04-14 13:39] LABS: Hematocrit 48.9 % (37.0-47.0); Hemoglobin 13.8 g/dL (12.0-16.0); Mean Corp Hgb Conc. 28.2 g/dL (33.0-37.0); Mean Corpuscular Volume 67.1 fL (81.0-99.0); Platelet Count 328 10^3/uL (130-400); Red Cell Dist. Width 20.0 % (11.5-14.5)
[2025-04-14 13:47] VITALS: BP 139/71
[2025-04-14 14:44] VITALS: BP 128/81
[2025-04-14 14:48] LABS: ALT (SGPT) 13 U/L (0-35); AST (SGOT) 22 U/L (14-36); Albumin 4.6 g/dl (3.5-5.0); Alkaline Phosphatase 62 U/L (38-126); Blood Urea Nitrogen 22 mg/dl (7-17); Calcium 9.7 mg/dl (8.4-10.2); Carbon Dioxide 28 mmol/L (22-30); Chloride 104 mmol/L (98-107); Glucose 69 mg/dl (70-99); HDL Cholesterol 58 mg/dl; LDL Cholesterol, Calculated 63 mg/dl; Potassium 4.5 mmol/L (3.5-5.1); Sodium 138 mmol/L (135-145); Total Protein 7.1 g/dl (6.3-8.2); Very Low Density Lipoprotein 14 mg/dl (0-30); eGFR > 60.00
[2025-04-14 15:01] VITALS: BP 116/84
== END 2025-04-15 08:37 | disposition home or self-care (01) ==
LOC: OID 12:47
PROVIDERS: Internal Medicine Cardiovascular Disease; ATTENDING PHYSICIAN Internal Medicine Hematology & Oncology
DX: D45 Polycythemia vera (principal)
CPT/HCPCS: 80053; 80061; 85025; 99195

== ENCOUNTER 2025-05-12 12:49 | Outpatient (RCR) | payer MEDICARE, SELFPAY ==
[2025-05-12 13:31] LABS: Hematocrit 46.0 % (37.0-47.0); Hemoglobin 13.0 g/dL (12.0-16.0); Mean Corp Hgb Conc. 28.3 g/dL (33.0-37.0); Mean Corpuscular Volume 67.9 fL (81.0-99.0); Platelet Count 355 10^3/uL (130-400); Red Cell Dist. Width 18.6 % (11.5-14.5)
[2025-05-12 13:37] VITALS: BP 133/88
[2025-05-12 14:24] VITALS: BP 114/81
[2025-05-12 14:30] VITALS: BP 106/75
== END 2025-05-13 08:08 | disposition home or self-care (01) ==
LOC: OID 12:49
PROVIDERS: ATTENDING PHYSICIAN Internal Medicine Hematology & Oncology
DX: D45 Polycythemia vera (principal)
CPT/HCPCS: 85025; 99195

== ENCOUNTER 2025-06-09 12:49 | Outpatient (RCR) | payer MEDICARE, SELFPAY ==
[2025-06-09 13:17] LABS: Hematocrit 42.5 % (37.0-47.0); Hemoglobin 12.1 g/dL (12.0-16.0); Mean Corp Hgb Conc. 28.5 g/dL (33.0-37.0); Mean Corpuscular Volume 67.9 fL (81.0-99.0); Platelet Count 303 10^3/uL (130-400); Red Cell Dist. Width 18.1 % (11.5-14.5)
[2025-06-09 13:19] VITALS: BP 125/85
== END 2025-06-10 08:25 | disposition home or self-care (01) ==
LOC: OID 12:49
PROVIDERS: ATTENDING PHYSICIAN Internal Medicine Hematology & Oncology
DX: D45 Polycythemia vera (principal)
CPT/HCPCS: 85025

== ENCOUNTER 2025-07-07 12:54 | Outpatient (RCR) | payer MEDICARE, SELFPAY ==
[2025-07-07 13:30] LABS: Hematocrit 46.4 % (37.0-47.0); Hemoglobin 12.6 g/dL (12.0-16.0); Mean Corp Hgb Conc. 27.2 g/dL (33.0-37.0); Mean Corpuscular Volume 68.3 fL (81.0-99.0); Platelet Count 355 10^3/uL (130-400); Red Cell Dist. Width 18.4 % (11.5-14.5)
[2025-07-07 13:42] VITALS: BP 143/77
[2025-07-07 14:37] VITALS: BP 106/69
[2025-07-07 14:40] VITALS: BP 110/69
== END 2025-07-08 10:04 | disposition home or self-care (01) ==
LOC: OID 12:54
PROVIDERS: ATTENDING PHYSICIAN Internal Medicine Hematology & Oncology
DX: D45 Polycythemia vera (principal)
CPT/HCPCS: 36415; 85025; 99195